=== PATIENT | male | born 1980 | race Caucasian/White ===

== ENCOUNTER 2017-06-18 10:56 | Outpatient (CLI) | payer BC ==
[~2017-06-18] VITALS: Ht 177.8 cm; Wt 78.0 kg
[~2017-06-18 10:56] MED LIST: LINZ72CA PO
[2017-06-18] MEDS ORDERED: NS 1,000 ML IV ONE (11:30)
[2017-06-18] MEDS ORDERED: LIDOCAINE 2% INJ 100 MG/5 ML SDV (FOR ANES.) As Ordered ONE (12:01)
[2017-06-18] MEDS ORDERED: PROPOFOL 200 MG/20 ML VIAL As Ordered ONE (12:02)
--- NOTE | 2017-06-18 12:24 | ROOR ---
Patient Name: Percy Gerardo Procedure Date: 06/18/2017 12:10 PM Date of : 1980 Age: 36 Room: [facility] Gender: Male Note Status: Finalized Procedure: Colonoscopy Indications: High risk colon cancer surveillance: Personal history of colonic polyps, Last colonoscopy: April 2014 Providers: Markus MCFARLANE MD Referring MD: Cherie GALEANA DO Requesting Provider: Medicines: Monitored Anesthesia Care Complications: No immediate complications. Procedure: Pre-Anesthesia Assessment: - The heart rate, respiratory rate, oxygen saturations, blood pressure, adequacy of pulmonary ventilation, and response to care were monitored throughout the procedure. The Colonoscope was introduced through the anus and advanced to the terminal ileum, with identification of the appendiceal orifice and IC valve. The colonoscopy was performed without difficulty. The patient tolerated the procedure well. The quality of the bowel preparation was good. Findings: The perianal and digital rectal examinations were normal. (Exam: Complete, Prep: Good or Excellent.) The entire examined colon appeared normal on direct and retroflexion views. Impression: - (Exam: Complete, Prep: Good or Excellent.) - The entire examined colon is normal on direct and retroflexion views. - No specimens collected. Recommendation: - Repeat colonoscopy in 5 years for surveillance based on personal history of previous adenomatous polyps. Marksu Mcfarlane MD Markus MCFARLANE MD 06/18/2017 12:24:19 PM This report has been signed electronically. Number of Addenda: 0 Note Initiated On: 06/18/2017 12:10 PM Estimated Blood Loss: Estimated blood loss: none.
[2017-06-18 12:40] VITALS: BP 134/68
== END 2017-06-18 12:54 | disposition home or self-care (01) ==
LOC: M OPP 10:56
PROVIDERS: ATTEND Internal Medicine Gastroenterology
DX: Z12.11 Encounter for screening for malignant neoplasm of colon (principal); Z86.010 Personal history of colon polyps; K58.9 Irritable bowel syndrome, unspecified; F17.290 Nicotine dependence, other tobacco product, uncomplicated; Z79.899 Other long term (current) drug therapy

== ENCOUNTER → 2017-10-16 | Outpatient (REF) ==
[2017-10-16 14:52] LABS: HEMATOCRIT 43.8 % (42.0-52.0); HEMOGLOBIN 14.9 g/dl (14.0-18.0); MEAN CORPUSCULAR HEMOGLOBIN 31.4 pg (27.0-33.0); MEAN CORPUSCULAR VOLUME 92.2 fl (80.0-96.0); PLATELET COUNT, AUTOMATED 239 10^3/uL (150-450); RED BLOOD COUNT 4.75 10^6/uL (4.30-6.10); RED CELL DISTRIBUTION WIDTH 13.2 % (11.5-14.5); WHITE BLOOD COUNT 7.4 10^3/uL (4.0-10.0)
[2017-10-16 15:24] LABS: ANION GAP 5 MEQ/L (8-16); BLOOD UREA NITROGEN 23 MG/DL (7-18); CALCIUM LEVEL 8.6 MG/DL (8.5-10.1); CARBON DIOXIDE LEVEL 32 MEQ/L (21-32); CHLORIDE LEVEL 104 MEQ/L (98-107); CREATININE FOR GFR 0.86 MG/DL (0.70-1.30); GLOMERULAR FILTRATION RATE > 60.0 (>60); GLUCOSE, FASTING 95 MG/DL (70-100); POTASSIUM SERUM 4.6 MEQ/L (3.5-5.1); SODIUM LEVEL 141 MEQ/L (136-145)
== END ==
LOC: M LAB 14:23
DX: Z00.00 Encounter for general adult medical examination without abnormal findings (principal)

== ENCOUNTER → 2019-07-27 | Outpatient (CLI) | payer BC ==
--- NOTE | 2019-07-28 07:41 | REP ---
Clinical: Achilles tendonitis. Technique: PA and lateral views of the right tibia / fibula. Findings: No acute fracture or dislocation. Impression: No acute fracture or dislocation. Electronically Signed by Natanael Haines MD 07/27/2019 03:28 P
--- NOTE | 2019-07-28 07:41 | REP ---
Clinical: Achilles Tendonitis . Technique: AP, lateral, bilateral oblique views. Findings: No acute fracture or dislocation. Skeletal structures and joint spaces are intact and normal. Ankle mortise appears stable. No subcutaneous emphysema or radiodense foreign body. Soft tissue subcutaneous stranding at the region of the distal Achilles tendon may represent injury. Impression: No acute fracture dislocation. As above. Electronically Signed by Natanael Haines MD 07/27/2019 03:27 P
== END ==
LOC: M WUC 14:59
PROVIDERS: ATTEND Physician Assistant
DX: M76.61 Achilles tendinitis, right leg (principal)

== ENCOUNTER → 2019-07-28 | Outpatient (CLI) | payer BC ==
--- NOTE | 2019-07-28 15:54 | REP ---
MRI right ankle without contrast: History: Strain of the Achilles tendon. Comparison right ankle radiographs are from July 27, 2019. Technique: Axial, sagittal, and coronal imaging planes are utilized. T1 and T2-weighted scans were included with and without fat saturation. MRI findings: Cortical and medullary bone signal intensity are normal. There is no evidence of hindfoot or distal tib-fib fracture. There is a small quantity of subtalar and ankle joint fluid. There is evidence of a complete tear of the Achilles tendon, 5.4 cm above the superior surface of the posterior calcaneus. There is redundant disrupted tendon material and edema at the myofascial interface at the level of the tear. There is pretibial fat streaking and edema. On axial images through the level of the tear, there is heterogeneous increased signal intensity throughout the cross-section of the Achilles tendon. No other tendon tear or tendinopathy is appreciated. No ligament disruption is appreciated. Impression: Findings consistent with complete tear of the Achilles tendon at the myofascial interface with slight retraction. Electronically Signed by Jesus Barajas MD 07/28/2019 06:51 P
== END ==
LOC: M RAD 14:31
PROVIDERS: ATTEND Orthopaedic Surgery
DX: S86.011A Strain of right Achilles tendon, initial encounter (principal); W18.30XA Fall on same level, unspecified, initial encounter; Y92.009 Unspecified place in unspecified non-institutional (private) residence as the place of occurrence of the external cause

== ENCOUNTER 2019-07-29 10:54 | Day surgery (SDC) | payer BC ==
[~2019-07-29] VITALS: Ht 177.8 cm; Wt 79.0 kg
[~2019-07-29 10:54] MED LIST changes: +LIDOCAINE 2% INJ 100 MG/5 ML SDV (FOR ANES.) As Ordered ONE; +MIDAZOLAM INJ 2 MG/2 ML VIAL (J2250) As Ordered ONE; +PROPOFOL 200 MG/20 ML VIAL As Ordered ONE; +ROCURONIUM BROMIDE 50 MG/5 ML VIAL As Ordered ONE; +ceFAZolin SOD 2 GM in IV 1 EA IV ONE; +fentaNYL 250 MCG/5 ML INJECTION (J3010) As Ordered ONE
[2019-07-29] MEDS ORDERED: DESFLURANE 240 ML INHALANT As Ordered ONE (12:50)
[2019-07-29] MEDS ORDERED: KETOROLAC 60 MG/2 ML VIAL (J1885) As Ordered ONE (13:22)
[2019-07-29] MEDS ORDERED: dexameTHASONE 4 MG/ML 1ML VIAL (J1100) As Ordered ONE (13:22)
[2019-07-29] MEDS ORDERED: ONDANSETRON 4MG/2ML VIAL (J2405) As Ordered ONE (13:22)
[2019-07-29] MEDS ORDERED: ACETAMINOPHEN 1000MG 100ML IV BTL (OFIRMEV) (J0131 PER 10MG) As Ordered ONE (13:22)
[2019-07-29] MEDS ORDERED: SUGAMMADEX SODIUM 500 MG/5 ML VIAL (BRIDION) As Ordered ONE (13:24)
[2019-07-29] MEDS ORDERED: BUPIVACAINE HCL 0.5% 30 ML VIAL As Ordered ONE (13:38)
[2019-07-29] MEDS ORDERED: ONDANSETRON 4MG/2ML VIAL (J2405) IV PRN (14:00)
[2019-07-29] MEDS ORDERED: HYDROMORPHONE HCL 0.5 MG/ 0.5 ML SYRINGE (J1170 PER 1) IV PRN (14:00)
[2019-07-29] MEDS ORDERED: PERCOCET 5MG/325MG TAB PO PRN (14:00)
[2019-07-29] MEDS ORDERED: fentaNYL 100 MCG/2 ML INJECTION (J3010) IV PRN (14:00)
[2019-07-29] MEDS ORDERED: LR 1,000 ML IV SCH ×2 (14:00→15:00)
[2019-07-29] MEDS ORDERED: oxyCODONE 5MG TAB PO PRN ×2 (15:00)
[2019-07-29] MEDS ORDERED: LR 1,000 ML IV ONE (15:00)
[2019-07-29 16:10] VITALS: BP 125/73
--- NOTE | 2019-07-30 15:31 | RO ---
DATE OF PROCEDURE: 07/29/2019 PREOPERATIVE DIAGNOSIS: Right Achilles rupture. POSTOPERATIVE DIAGNOSIS: Right Achilles rupture. PROCEDURE: Right Achilles repair. SURGEON: Natalie Moses MD [employer] SERVICE REPRESENTATIVE: Tony Palacio PA-C ANESTHESIA: General endotracheal anesthesia (GETA). ESTIMATED BLOOD LOSS: 50 mL. COMPLICATIONS: None. CONDITION: Stable to recovery. INDICATIONS: Percy Gerardo is a 38-year-old male who sustained a right Achilles rupture at [facility]. Patient was offered both conservative and surgical repair. He elected for surgery. Risks and benefits of surgery were discussed with the patient in detail and include, but are not limited to, infection, damage to nerves and blood vessels, continued pain and stiffness, need for additional procedures. Informed consent was obtained prior to the procedure. I did go over the patient's MRI results with him, which showed a somewhat proximal tear near the musculotendinous junction. Given the location of the tear, I did warn the patient that the tissue quality may be sub-par as the tendon thins near the musculotendinous junction. He is understanding of this prior to the procedure. DESCRIPTION OF PROCEDURE: Patient was met in the preoperative holding area where his right lower extremity was marked as the correct operative site. He was taken to the operating room and underwent general anesthesia without difficulty. A well-padded tourniquet was applied. He was placed in the prone position. Bony prominences were well padded. Right lower extremity was prepped and draped in the normal sterile fashion. Antibiotics were given within 60 minutes prior to incision. An official time-out was held where the correct patient, operative site, and operative procedure were verified. An Esmarch tourniquet was used to exsanguinate the leg, and tourniquet was inflated to 250 mmHg. An incision was made midline over the Achilles tendon. The peritenon was incised. There was complete tear of the Achilles tendon just distal to the musculotendinous junction. Tissue was in fairly poor quality, and there was an area of tendon that has sheared off of the muscle itself. The tendon was irrigated. proximally and distally and the tendon fragments. Care was taken to avoid incorporating any significant amount of muscle. Then, using another #2 FiberWire on each end, Martha weave was performed. The ends were tied down together. I did obtain a satisfactory repair with this method. The patient was in very slightly more plantar flexion than his contralateral side. Copious irrigation was performed. The peritenon was closed using #2-0 Vicryl. Skin was closed using #3-0 nylon. A well-padded dressing was applied followed by a well-padded splint. He was flipped back to the supine position. He was then extubated and taken to the recovery room in stable condition. PLAN: Patient will be nonweightbearing in the right lower extremity for 6 weeks. He will be on Xarelto for deep venous thrombosis (DVT) prophylaxis for 2 weeks, and we will switch him to aspirin. I will see him back in 2 weeks for wound check and likely suture removal.
== END 2019-07-29 16:20 | disposition home or self-care (01) ==
LOC: M SDC 10:54
PROVIDERS: ATTEND Orthopaedic Surgery
DX: S86.011A Strain of right Achilles tendon, initial encounter (principal); X58.XXXD Exposure to other specified factors, subsequent encounter; Y92.39 Other specified sports and athletic area as the place of occurrence of the external cause; Y93.9 Activity, unspecified; Y99.9 Unspecified external cause status
CPT/HCPCS: 27650; J0131; J0690; J1100; J1885; J2250; J2405; J3010

== ENCOUNTER → 2019-09-23 | Outpatient (RCR) | payer BC ==
[~2019-09-23] MED LIST changes: -LIDOCAINE 2% INJ 100 MG/5 ML SDV (FOR ANES.) As Ordered ONE; -MIDAZOLAM INJ 2 MG/2 ML VIAL (J2250) As Ordered ONE; -PROPOFOL 200 MG/20 ML VIAL As Ordered ONE; -ROCURONIUM BROMIDE 50 MG/5 ML VIAL As Ordered ONE; -ceFAZolin SOD 2 GM in IV 1 EA IV ONE; -fentaNYL 250 MCG/5 ML INJECTION (J3010) As Ordered ONE
== END ==
LOC: M PT 08-25 10:53
PROVIDERS: ATTEND Orthopaedic Surgery
DX: Z47.89 Encounter for other orthopedic aftercare (principal); S86.011D Strain of right Achilles tendon, subsequent encounter; X58.XXXD Exposure to other specified factors, subsequent encounter; Y92.9 Unspecified place or not applicable; Y93.9 Activity, unspecified; Y99.9 Unspecified external cause status

== ENCOUNTER 2019-10-23 13:45 | Outpatient (RCR) | payer BC | END 2019-10-24 | LOC: M PT 13:45 | PROVIDERS: ATTEND Orthopaedic Surgery | DX: S86.011D Strain of right Achilles tendon, subsequent encounter (principal); Z47.89 Encounter for other orthopedic aftercare; X58.XXXD Exposure to other specified factors, subsequent encounter; Y92.9 Unspecified place or not applicable ==

== ENCOUNTER 2019-11-05 15:09 | Outpatient (RCR) | payer BC | END 2019-11-22 | LOC: M PT 15:09 | PROVIDERS: ATTEND Orthopaedic Surgery | DX: S86.011D Strain of right Achilles tendon, subsequent encounter (principal); Z47.89 Encounter for other orthopedic aftercare; X58.XXXD Exposure to other specified factors, subsequent encounter; Y92.9 Unspecified place or not applicable; Y93.9 Activity, unspecified; Y99.9 Unspecified external cause status ==

== ENCOUNTER → 2020-08-23 | Outpatient (CLI) | payer BC ==
[~2020-08-23] MED LIST changes: +PROHANCE 279.3MG/ML 15ML VIAL As Ordered ONE
--- NOTE | 2020-08-23 16:39 | REP ---
INDICATION: LOCALIZED SWELLING, MASS, LUMP RT ANKLE. Patient status post repair for complete rupture Achilles tendon. COMPARISON: Comparison preoperative MRI study is from July 28, 2019. TECHNIQUE: Axial, coronal and sagittal imaging planes utilized. T1 and T2 weighted scans are included with without fat saturation. Right ankle MRI protocol. FINDINGS: Cortical and medullary bone signal intensity are normal. There is no evidence of joint effusion. There is marked diffuse thickening of the Achilles tendon. The Achilles tendon measures up to 17 mm in anteroposterior span by 23 mm right to left. It displays fairly homogeneous low T1 low T2 signal intensity however. No discontinuity is seen. Posteriorly superficial to the Achilles tendon above the level of the calcaneus, there is a oval-shaped intermediate T1 and high T2 signal intensity cystic nodule. This measures 13 by 8 mm by 10 mm. It has a low T1 low T2 signal intensity capsule. No magnetic field susceptibility artifact to suggest foreign body. There is minimal adjacent edema. Ankle mortise is intact. The tibial plafond and talar dome show no abnormality. The deltoid ligamentous complex appears intact. Calcaneofibular, posterior talofibular, anterior talofibular, anterior inferior tibiofibular ligaments appear intact. No other tendinopathy is appreciated. IMPRESSION: Marked diffuse fusiform thickening of the Achilles tendon. Achilles tendon shows a fairly homogeneous low T1 low T2 signal intensity throughout. No discontinuity. The nodule posteriorly adjacent to the Achilles tendon is seen and appears cystic. It measures 13 x 8 x 10 mm. <Electronically signed by Jarde Barajas > 08/23/20 1513
== END ==
LOC: M RAD 15:15
PROVIDERS: ATTEND Orthopaedic Surgery
DX: R22.41 Localized swelling, mass and lump, right lower limb (principal)

== ENCOUNTER → 2020-09-04 | Outpatient (CLI) | payer BC ==
[~2020-09-04] MED LIST changes: -PROHANCE 279.3MG/ML 15ML VIAL As Ordered ONE
== END ==
LOC: M LABSMTC 09:26
PROVIDERS: ATTEND Orthopaedic Surgery
DX: Z01.812 Encounter for preprocedural laboratory examination (principal); Z20.828 Contact with and (suspected) exposure to other viral communicable diseases

== ENCOUNTER → 2020-09-09 | Outpatient (REF) | payer BC | LOC: M LAB REF 17:28 | PROVIDERS: ATTEND Orthopaedic Surgery | DX: L72.0 Epidermal cyst (principal) ==

== ENCOUNTER 2021-07-18 07:55 | Outpatient (RCR) | END 2021-07-19 09:57 | disposition home or self-care (01) | LOC: M EMP 07:55 | PROVIDERS: ATTEND Pediatrics | DX: Z11.52 Encounter for screening for COVID-19 (principal) ==

== ENCOUNTER → 2021-12-06 | Outpatient (CLI) | payer BC ==
[2021-12-06 18:52] LABS: BASO % 0.4 % (0.0-1.0); EOS # 0.3 10^3/uL (0.0-0.5); EOS % 2.7 % (0.0-3.0); HEMATOCRIT 41.4 % (42.0-52.0); HEMOGLOBIN 13.9 g/dl (13.5-17.5); LYMPH # 1.5 10^3/uL (1.5-5.0); LYMPH % 14.6 % (24.0-44.0); MEAN CORPUSCULAR HEMOGLOBIN 29.8 pg (27.0-33.0); MEAN CORPUSCULAR HGB CONC 33.6 g/dl (32.0-36.5); MEAN CORPUSCULAR VOLUME 88.7 fl (80.0-96.0); MONO # 0.7 10^3/uL (0.0-0.8); MONO % 6.5 % (2.0-8.0); NEUTROPHILS # 7.9 10^3/uL (1.5-8.5); NEUTROPHILS % 75.5 % (36.0-66.0); PLATELET COUNT, AUTOMATED 306 10^3/uL (150-450); RED BLOOD COUNT 4.67 10^6/uL (4.30-6.10); WHITE BLOOD COUNT 10.5 10^3/uL (4.0-10.0)
[2021-12-06 19:02] LABS: ALT/SGPT 50 U/L (12-78); BILIRUBIN,TOTAL 0.3 MG/DL (0.2-1.0); BLOOD UREA NITROGEN 19 MG/DL (7-18); C REACTIVE PROTEIN QUANTITATIV 4.97 MG/DL (0.00-0.30); CALCIUM LEVEL 9.3 MG/DL (8.5-10.1); CARBON DIOXIDE LEVEL 33 MEQ/L (21-32); CHLORIDE LEVEL 105 MEQ/L (98-107); CREATININE FOR GFR 1.12 MG/DL (0.70-1.30); GLOMERULAR FILTRATION RATE > 60.0 (>60); GLUCOSE, FASTING 136 MG/DL (70-100); POTASSIUM SERUM 4.6 MEQ/L (3.5-5.1); RHEUMATOID FACTOR QUANT < 10.0 IU/ML (<15.0); SODIUM LEVEL 138 MEQ/L (136-145); TOTAL PROTEIN 7.1 GM/DL (6.4-8.2); URIC ACID 2.8 MG/DL (3.5-7.2)
[2021-12-06 19:09] LABS: TOTAL 25(OH) VITAMIN D 15.7 NG/ML (30.0-100.0); VITAMIN B12 LEVEL 814 PG/ML (247-911)
[2021-12-06 19:12] LABS: ERYTHROCYTE SEDIMENTATION RATE 32 mm/hr (0-15)
[2021-12-06 19:18] LABS: MONO SCRN NEGATIVE (NEGATIVE)
[2021-12-08 15:07] LABS: ANTINUCLEAR ANTIBODIES DIRECT Negative (Negative); EBV VIRAL CAPSID AG IgG 93.7 U/mL (0.0-17.9); EBV VIRAL CAPSID AG IgM <36.0 U/mL (0.0-35.9); Lyme Disease IgG/IgM Antibodie <0.91 ISR (0.00-0.90); Lyme Disease IgM Ab Quantitati <0.80 index (0.00-0.79)
== END ==
LOC: M LAB 17:54
PROVIDERS: ATTEND Physician Assistant Medical
DX: M79.10 Myalgia, unspecified site (principal); M26.629 Arthralgia of temporomandibular joint, unspecified side

== ENCOUNTER → 2021-12-15 | Outpatient (CLI) | payer BC ==
[2021-12-15 14:59] LABS: BASO % 0.2 % (0.0-1.0); EOS % 0.2 % (0.0-3.0); HEMATOCRIT 41.1 % (42.0-52.0); HEMOGLOBIN 13.8 g/dl (13.5-17.5); LYMPH # 1.4 10^3/uL (1.5-5.0); LYMPH % 12.8 % (24.0-44.0); MEAN CORPUSCULAR HEMOGLOBIN 29.3 pg (27.0-33.0); MEAN CORPUSCULAR HGB CONC 33.6 g/dl (32.0-36.5); MEAN CORPUSCULAR VOLUME 87.3 fl (80.0-96.0); MONO # 0.7 10^3/uL (0.0-0.8); MONO % 5.9 % (2.0-8.0); NEUTROPHILS # 8.9 10^3/uL (1.5-8.5); NEUTROPHILS % 80.4 % (36.0-66.0); PLATELET COUNT, AUTOMATED 385 10^3/uL (150-450); RED BLOOD COUNT 4.71 10^6/uL (4.30-6.10); WHITE BLOOD COUNT 11.1 10^3/uL (4.0-10.0)
[2021-12-15 15:21] LABS: ERYTHROCYTE SEDIMENTATION RATE 28 mm/hr (0-15)
[2021-12-15 15:34] LABS: ALBUMIN 3.8 GM/DL (3.2-5.2); ALT/SGPT 57 U/L (12-78); BILIRUBIN,TOTAL 0.4 MG/DL (0.2-1.0); BLOOD UREA NITROGEN 25 MG/DL (7-18); C REACTIVE PROTEIN QUANTITATIV 1.37 MG/DL (0.00-0.30); CALCIUM LEVEL 9.1 MG/DL (8.5-10.1); CARBON DIOXIDE LEVEL 28 MEQ/L (21-32); CHLORIDE LEVEL 106 MEQ/L (98-107); CREATININE FOR GFR 0.95 MG/DL (0.70-1.30); FREE T4 1.17 NG/DL (0.76-1.46); GLOMERULAR FILTRATION RATE > 60.0 (>60); GLUCOSE, FASTING 108 MG/DL (70-100); POTASSIUM SERUM 4.3 MEQ/L (3.5-5.1); RHEUMATOID FACTOR QUANT < 10.0 IU/ML (<15.0); SODIUM LEVEL 139 MEQ/L (136-145); THYROID STIMULATING HORMONE 0.425 uIU/ML (0.358-3.740); TOTAL 25(OH) VITAMIN D 19.6 NG/ML (30.0-100.0); TOTAL PROTEIN 7.4 GM/DL (6.4-8.2)
[2021-12-17 19:08] LABS: ANA (HEP2) Negative (.)
== END ==
LOC: M LAB 14:08
PROVIDERS: ATTEND Nurse Practitioner Adult Health
DX: E55.9 Vitamin D deficiency, unspecified (principal); R70.0 Elevated erythrocyte sedimentation rate

== ENCOUNTER 2023-12-27 07:03 | Day surgery (SDC) | payer BC ==
[~2023-12-27] VITALS: Ht 177.8 cm; Wt 81.6 kg
[2023-12-27] MEDS: NS 1,000 ML IV ONE (07:43)
[2023-12-27] MEDS ORDERED: propofoL 500 MG/50 ML VIAL As Ordered ONE (08:16)
[2023-12-27 09:00] VITALS: TEMP 97.2
[2023-12-27 09:01] VITALS: BP 116/76; O2SAT 99
== END 2023-12-27 08:45 | disposition home or self-care (01) ==
LOC: M OPP 07:03
PROVIDERS: ATTEND Internal Medicine Gastroenterology
DX: Z12.11 Encounter for screening for malignant neoplasm of colon (principal); Z86.010 Personal history of colon polyps

== ENCOUNTER → 2024-08-26 | Outpatient (CLI) | payer BC ==
[2024-08-26 08:53] LABS: BASO % 0.6 % (0.0-1.0); EOS # 0.4 10^3/uL (0.0-0.5); EOS % 7.8 % (0.0-3.0); HEMATOCRIT 43.4 % (42.0-52.0); HEMOGLOBIN 14.7 g/dl (13.5-17.5); LYMPH # 1.3 10^3/uL (1.5-5.0); LYMPH % 24.8 % (24.0-44.0); MEAN CORPUSCULAR HEMOGLOBIN 30.8 pg (27.0-33.0); MEAN CORPUSCULAR HGB CONC 33.9 g/dl (32.0-36.5); MONO # 0.7 10^3/uL (0.0-0.8); NEUTROPHILS # 2.8 10^3/uL (1.5-8.5); NEUTROPHILS % 52.6 % (36.0-66.0); PLATELET COUNT, AUTOMATED 243 10^3/uL (150-450); RED BLOOD COUNT 4.77 10^6/uL (4.30-6.10); WHITE BLOOD COUNT 5.3 10^3/uL (4.0-10.0)
[2024-08-26 09:26] LABS: ALBUMIN 3.9 G/DL (3.2-5.2); ALKALINE PHOSPHATASE 76 U/L (40-129); ALT/SGPT 27 U/L (7.0-40); AST/SGOT 26 U/L (<34); BILIRUBIN,TOTAL 0.7 MG/DL (0.3-1.2); BLOOD UREA NITROGEN 20 MG/DL (9-23); CALCIUM LEVEL 9.5 MG/DL (8.5-10.1); CARBON DIOXIDE LEVEL 28 MMOL/L (20-31); CHLORIDE LEVEL 107 MMOL/L (98-107); CHOLESTEROL LEVEL 169 MG/DL (<200); CHOLESTEROL RISK RATIO 3.18 (<5); CREATININE FOR GFR 1.07 MG/DL (0.70-1.30); GLOMERULAR FILTRATION RATE > 60.0 (>60); GLUCOSE, FASTING 89 MG/DL (60-100); LDL CHOLESTEROL 97.6 MG/DL (<100); POTASSIUM SERUM 3.8 MMOL/L (3.5-5.1); SODIUM LEVEL 140 MMOL/L (136-145); TOTAL PROTEIN 6.9 G/DL (5.7-8.2); TRIGLYCERIDES LEVEL 92 MG/DL (<150)
[2024-08-26 09:27] LABS: THYROID STIMULATING HORMONE 1.593 uIU/ML (0.55-4.78); TOTAL 25(OH) VITAMIN D 21.4 NG/ML (20.0-100.0)
[2024-08-26 09:28] LABS: FREE T4 1.09 NG/DL (0.89-1.76)
[2024-08-26 10:24] LABS: HEMOGLOBIN A1c 5.2 % (4.0-6.0)
== END ==
LOC: M LAB 07:49
PROVIDERS: ATTEND Physician Assistant
DX: E55.9 Vitamin D deficiency, unspecified (principal); Z13.220 Encounter for screening for lipoid disorders; Z13.29 Encounter for screening for other suspected endocrine disorder